=== PATIENT | female | born 1940 | race Asian ===

== ENCOUNTER → 2018-01-31 | Outpatient (CLI) | payer MEDICARE, OTHER ==
[~2018-01-31] MED LIST: AMLO10TA55 PO; ANAG.5 PO; ASPI-556 PO; ATOVASTATIN; CALC-461 PO; CHOL10002 PO; CYAN1TAB44 PO; LETR2.5 PO; METROPOLOL
[2018-01-31 11:02] LABS: BASOPHILS % (AUTO) 0.8 % (0.0-2.0); EOSINOPHILS % (AUTO) 2.9 % (1.0-6.0); LYMPHOCYTES % (AUTO) 15.8 % (22.0-44.0); MEAN CORPUSCULAR HGB CONC 33.2 G/dL (31.0-37.0); MEAN CORPUSCULAR VOLUME 87 fL (80-100); MONOCYTES # (AUTO) 0.4 K/uL (0.1-1.0); MONOCYTES % (AUTO) 2.9 % (2.0-9.0); NEUTROPHILS # (AUTO) 9.7 K/uL (1.8-7.7); NEUTROPHILS % (AUTO) 77.6 % (40.0-70.0); PLATELET COUNT (AUTO) 382 K/uL (150-450); RED BLOOD CELL COUNT(AUTO) 3.78 MIL/uL (4.00-5.20); RED CELL DISTRIBUTION WIDTH 20.3 % (11.5-14.5)
[2018-01-31 11:08] LABS: HEMOGLOBIN A1C 6.3 % (4.5-6.2)
[2018-01-31 11:10] LABS: ALBUMIN 4.1 g/dL (3.4-5.0); CALCIUM, TOTAL 9.2 mg/dL (8.8-10.5); CHOL/HDL RATIO 2.5 (3.9-5.7); CREATININE 1.26 mg/dL (0.60-1.30); MAGNESIUM 2.3 mg/dL (1.80-2.40); POTASSIUM 5.3 mmol/L (3.5-5.1)
[2018-02-02 12:15] LABS: APPEARANCE,URINE CLEAR (CLEAR); BILIRUBIN,URINE NEGATIVE (NEGATIVE); GLUCOSE, URINE (UA) NEGATIVE (NEGATIVE); KETONES,URINE NEGATIVE (NEGATIVE); LEUKOCYTE ESTERASE ,URINE NEGATIVE (NEGATIVE); NITRATE,URINE NEGATIVE (NEGATIVE); OCCULT BLOOD,URINE NEGATIVE (NEGATIVE); PROTEIN,URINE TRACE (NEGATIVE); UROBILINOGEN,URINE 0.2 mg/dL (<=1.0)
== END | disposition home or self-care (01) ==
LOC: LABPV 09:00
PROVIDERS: ATTEND Internal Medicine Nephrology
DX: I10 Essential (primary) hypertension (principal); D47.3 Essential (hemorrhagic) thrombocythemia; E78.5 Hyperlipidemia, unspecified; R94.4 Abnormal results of kidney function studies; R73.09 Other abnormal glucose; E55.9 Vitamin D deficiency, unspecified; Z86.73 Personal history of transient ischemic attack (TIA), and cerebral infarction without residual deficits
CPT/HCPCS: 82043; 82306; 82570; 83036; 83735; 83970

== ENCOUNTER → 2018-09-30 | Outpatient (CLI) | payer MEDICARE, OTHER | END | disposition home or self-care (01) | LOC: RADPV 10:56 | PROVIDERS: ATTEND Internal Medicine Geriatric Medicine | DX: R06.2 Wheezing (principal) ==

== ENCOUNTER → 2019-08-23 | Outpatient (CLI) | payer MEDICARE, OTHER ==
[2019-08-25 11:08] LABS: BILIRUBIN,URINE NEGATIVE (NEGATIVE); GLUCOSE, URINE (UA) NEGATIVE (NEGATIVE); KETONES,URINE NEGATIVE (NEGATIVE); LEUKOCYTE ESTERASE ,URINE MODERATE (NEGATIVE); NITRATE,URINE NEGATIVE (NEGATIVE); OCCULT BLOOD,URINE SMALL (NEGATIVE); PH,URINE 6.5 (5.0-8.0); PROTEIN,URINE POS 1+ (NEGATIVE); UROBILINOGEN,URINE 0.2 mg/dL (<=1.0)
[2019-08-25 11:09] LABS: APPEARANCE,URINE CLEAR (CLEAR); BACTERIA,URINE None Seen /HPF (None Seen); RBC,URINE 0-2 /HPF (0-2); SQUAMOUS EPITHELIAL CELL,UR Few /LPF (None Seen)
[2019-08-25 11:10] LABS: HEMATOCRIT 32.3 % (36-46); HEMOGLOBIN 10.9 g/dL (12.0-16.0); MEAN CORPUSCULAR HEMOGLOBIN 30.2 pg (26.0-34.0); MEAN CORPUSCULAR HGB CONC 33.6 G/dL (31.0-37.0); MEAN CORPUSCULAR VOLUME 90 fL (80-100); PLATELET COUNT (AUTO) 209 K/uL (150-450); RED CELL DISTRIBUTION WIDTH 20.1 % (11.5-14.5)
[2019-08-25 11:13] LABS: BAND NEUTROPHILS % (MANUAL) 10 % (0-5); BASOPHILS % (MANUAL) 1 % (0-2); EOSINOPHILS % (MANUAL) 1 % (1-6); LYMPHOCYTES % (MANUAL) 10 % (22-44); MONOCYTES % (MANUAL) 4 % (2-9); SEGMENTED NEUTROPHILS % 74 % (40-70)
[2019-08-25 11:58] LABS: HEMOGLOBIN A1C 6.2 % (4.5-6.2)
[2019-08-25 12:20] LABS: POTASSIUM 4.7 mmol/L (3.5-5.1)
[2019-08-25 12:21] LABS: ALBUMIN 3.9 g/dL (3.4-5.0); CALCIUM, TOTAL 9.4 mg/dL (8.8-10.5); CREATININE 1.07 mg/dL (0.60-1.30); FREE T4 (FREE THYROXINE) 1.11 ng/dL (0.76-1.46); PHOSPHORUS 4.1 mg/dL (2.5-4.9); THYROID STIMULATING HORMONE 3.73 uIU/mL (0.36-3.74); URIC ACID 7.5 mg/dL (2.6-7.2)
[2019-08-25 12:25] LABS: OSMOLALITY,URINE 169 mOS/kg (50-1200); POTASSIUM,URINE RANDOM 12 mmol/L (12-75); SODIUM,URINE RANDOM 38 mmol/l (20-110)
== END | disposition home or self-care (01) ==
LOC: LABMN 08:00
PROVIDERS: ATTEND Internal Medicine Nephrology
DX: E11.22 Type 2 diabetes mellitus with diabetic chronic kidney disease (principal); I12.9 Hypertensive chronic kidney disease with stage 1 through stage 4 chronic kidney disease, or unspecified chronic kidney disease; N18.3 Chronic kidney disease, stage 3 (moderate); N30.00 Acute cystitis without hematuria; D47.3 Essential (hemorrhagic) thrombocythemia; E87.5 Hyperkalemia; Z86.73 Personal history of transient ischemic attack (TIA), and cerebral infarction without residual deficits
CPT/HCPCS: 82043; 82533; 82570; 83036; 83935; 84133; 84300; 84439; 84443; 84550; 87086

== ENCOUNTER → 2020-07-07 | Outpatient (CLI) | payer MEDICARE, OTHER | END | disposition home or self-care (01) | LOC: SRCNTR 11:34 | PROVIDERS: ATTEND Internal Medicine | DX: A31.0 Pulmonary mycobacterial infection (principal); I10 Essential (primary) hypertension; E78.5 Hyperlipidemia, unspecified; J98.8 Other specified respiratory disorders; Z85.3 Personal history of malignant neoplasm of breast; Z88.8 Allergy status to other drugs, medicaments and biological substances; Z79.899 Other long term (current) drug therapy | CPT/HCPCS: Q3014 ==

== ENCOUNTER → 2020-08-02 | Outpatient (CLI) | payer MEDICARE, OTHER | END | disposition home or self-care (01) | LOC: LABPV 10:05 | PROVIDERS: ATTEND Internal Medicine | DX: B99.9 Unspecified infectious disease (principal) | CPT/HCPCS: 87070; 87205; 87077-TC ==

== ENCOUNTER → 2021-01-27 | Outpatient (CLI) | payer MEDICARE, OTHER ==
[2021-01-27 16:17] VITALS: BP 136/70
== END | disposition home or self-care (01) ==
LOC: SRCNTR 10:52
PROVIDERS: ATTEND Internal Medicine
DX: I10 Essential (primary) hypertension (principal); E78.5 Hyperlipidemia, unspecified; Z85.3 Personal history of malignant neoplasm of breast
CPT/HCPCS: G0463

== ENCOUNTER → 2025-04-17 | Outpatient (CLI) | payer MEDICARE, MEDICAID ==
[~2025-04-17] MED LIST changes: -ANAG.5 PO; +[UNRECOGNIZED DRUG - CODE] PO
[2025-04-17 11:58] LABS: MEAN CORPUSCULAR HEMOGLOBIN 29.8 pg (26.0-34.0); MEAN CORPUSCULAR HGB CONC 31.4 G/dL (31.0-37.0); MEAN CORPUSCULAR VOLUME 95 fL (80-100); PLATELET COUNT (AUTO) 409 K/uL (150-450); RED BLOOD CELL COUNT(AUTO) 2.08 MIL/uL (4.00-5.20); RED CELL DISTRIBUTION WIDTH 23.2 % (11.5-14.5)
[2025-04-17 12:05] LABS: HEMOGLOBIN A1C 4.7 % (3.8-5.6)
[2025-04-17 12:13] LABS: HEMOGLOBIN 6.2 g/dL (12.0-16.0); WHITE BLOOD COUNT (AUTO) 31.2 K/uL (4.5-11.0)
[2025-04-17 12:14] LABS: ALBUMIN 2.8 g/dL (3.4-5.0); CHOL/HDL RATIO 3.3 (3.9-5.7); CREATININE 1.37 mg/dL (0.60-1.30); MAGNESIUM 2.3 mg/dL (1.80-2.40); PHOSPHORUS 4.5 mg/dL (2.5-4.9); POTASSIUM 5.6 mmol/L (3.5-5.1)
[2025-04-17 12:14] LABS: HEMATOCRIT 19.8 % (36-46)
[2025-04-17 12:37] LABS: BAND NEUTROPHILS % (MANUAL) 31 % (0-5); BASOPHILS % (MANUAL) 1 % (0-2); EOSINOPHILS % (MANUAL) 1 % (1-6); LYMPHOCYTES % (MANUAL) 9 % (22-44); MONOCYTES % (MANUAL) 4 % (2-9); MYELOCYTES % 2 % (0-0); SEGMENTED NEUTROPHILS % 52 % (40-70); TOTAL CELLS COUNTED 100
[2025-04-17 12:39] LABS: RBC MORPHOLOGY COMMENT ABNORMAL R
[2025-04-18 09:31] LABS: APPEARANCE,URINE TURBID (CLEAR); BILIRUBIN,URINE NEGATIVE (NEGATIVE); COLOR,URINE YELLOW (YELLOW); GLUCOSE, URINE (UA) NEGATIVE (NEGATIVE); KETONES,URINE NEGATIVE (NEGATIVE); LEUKOCYTE ESTERASE ,URINE LARGE (NEGATIVE); NITRATE,URINE NEGATIVE (NEGATIVE); OCCULT BLOOD,URINE MODERATE (NEGATIVE); PROTEIN,URINE 100-200,SEE CONFIRM mg/dL (NEGATIVE); SPECIFIC GRAVITIY, URINE 1.009 (1.003-1.030); UROBILINOGEN,URINE <=1.0 mg/dL (<=1.0)
[2025-04-18 09:34] LABS: PROTEIN,URINE RANDOM 145 mg/dL (0-11.9)
[2025-04-18 09:56] LABS: SULFOSALICYLIC ACID,URINE 2+ (Negative)
[2025-04-18 09:57] LABS: BACTERIA,URINE Many /HPF (None Seen); WBC,URINE >100 /HPF (0-5)
[2025-04-18 09:58] LABS: RENAL EPITHELIAL CELLS,URINE Few /LPF (None Seen)
[2025-04-21 03:07] LABS: CREATININE, URINE (mALB) 36.9 mg/dL (Not Estab.)
== END | disposition home or self-care (01) ==
LOC: LABMN 11:24
PROVIDERS: ATTEND Internal Medicine Nephrology
DX: I12.9 Hypertensive chronic kidney disease with stage 1 through stage 4 chronic kidney disease, or unspecified chronic kidney disease (principal); N18.31 Chronic kidney disease, stage 3a; E87.1 Hypo-osmolality and hyponatremia; R73.03 Prediabetes
CPT/HCPCS: 80061; 80069; 81001; 81002; 82043; 82570; 83036; 83735; 84156; 85025; 87077; 87086; 87186